=== PATIENT | female | born 1940 | race Two or more races ===

== ENCOUNTER 2023-02-19 07:48 | Emergency (ER) | payer OTHER ==
[~2023-02-19] VITALS: Ht 160 cm; Wt 51.3 kg
[2023-02-19 08:58] VITALS: BP 170/91; PULSE 66; RESP 16; TEMP 98.5; O2SAT 97
[2023-02-19] MEDS ORDERED: ERY05OO OP (08:59)
[2023-02-19] MEDS ORDERED: ACET1CAP14 PO (08:59)
== END 2023-02-19 09:05 | disposition home or self-care (01) ==
LOC: ER 07:48
DX: S40.021A Contusion of right upper arm, initial encounter (principal); H10.9 Unspecified conjunctivitis; Z91.013 Allergy to seafood; Z79.1 Long term (current) use of non-steroidal anti-inflammatories (NSAID); Z79.899 Other long term (current) drug therapy; X58.XXXA Exposure to other specified factors, initial encounter; Y93.89 Activity, other specified; Y92.89 Other specified places as the place of occurrence of the external cause; Y99.8 Other external cause status
CPT/HCPCS: 73060